=== PATIENT | male | born 1975 | race Hispanic/Latino ===

== ENCOUNTER 2018-10-07 22:59 | Observation (INO) | payer BC, MEDICARE ==
[~2018-10-07] VITALS: Ht 180.3 cm; Wt 134.3 kg
[~2018-10-07 22:59] MED LIST: CALCITRIOL0.25 MCG PO; DOXAZOSIN MESYLA2 MG PO; HYDRALAZINE HCL25 MG PO; LISINOPRIL10 MG PO; MINOXIDIL2.5 MG PO; NIFEDIPINE ER30 M1 PO; NORVASC5 MG PO; SIMVASTATIN20 MG PO; SODIUM BICARBO650 MG PO; TEKTURNA300 MG PO
--- OUTSIDE RECORDS SUMMARY | 2018-10-07 23:02 | XMS REPORT | Clinical Summary ---
Author Author [facility] Organization [facility] Address Unknown Phone Unavailable Care Team Providers Care Portfolio Management Marketing Name Role Phone Lula Mata MD PCP Allergies Comments Active Allergy Reactions Severity Noted Date No Known Drug Allergies 07/21/2015 Medications End Date Status Medication Sig Dispensed Refills Start Date Active doxazosin (CARDURA) 8 MG Take 8 mg by 0 tablet mouth 2 (two) times a day. Active hydrALAZINE (APRESOLINE) Take 100 mg 0 100 MG tablet by mouth 3 (three) times a day. Active amLODIPine (NORVASC) 10 Take 10 mg by 0 MG tablet mouth daily. Active acarbose (PRECOSE) 25 MG Take 25 mg by 0 tablet mouth 3 (three) times a day with meals. Active calcitriol (ROCALTROL) Take 0.5 mcg 0 0.5 MCG capsule by mouth daily. Active furosemide (LASIX) 40 MG Take 40 mg by 0 tablet mouth 2 (two) times a day. Active sevelamer (RENVELA) 800 Take 1,600 mg 0 mg tablet by mouth 3 (three) times a day with meals. Active diphenhydrAMINE Take 25 mg by 0 (BENADRYL) 25 mg tablet mouth nightly as needed for itching, allergies or sleep. Active senna (SENOKOT) 8.6 mg Take 2 0 tablet tablets by mouth as needed for constipation. Active acarbose (PRECOSE) 50 MG TAKE ONE 270 tablet 2 05/11/ tablet TABLET MOUTH 7 3 TIMES A DAY Active Problems Problem Noted Date Hypoglycemia 07/21/2015 Abnormal cortisol level 07/21/2015 Obesity 07/21/2015 Hypertensive disorder 07/21/2015 End stage renal failure on dialysis 07/21/2015 Family History Medical History Relation Name Comments Diabetes Maternal Aunt Diabetes Maternal Grandmother Diabetes Maternal Uncle Diabetes Mother Diabetes Paternal Aunt Diabetes Paternal Grandmother Relation Name Status Comments Maternal Aunt Maternal Grandmother Maternal Uncle Mother Paternal Aunt Paternal Grandmother Social History Date Tobacco Use Types Packs/Day Years Used Never Assessed Drinks/Week oz/Week Comments Alcohol Use No Sex Assigned at Date Recorded Not on file Industry Job Start Date Occupation Not on file Not on file Not on file Travel End Travel History Travel Start No recent travel history available. Last Filed Vital Signs Not on file Plan of Treatment Health Maintenance Due Date Last Done Comments INFLUENZA VACCINE 09/18/2018 Results Not on fileafter 10/06/2017 Insurance Type Payer Benefit Subscriber ID Effective Phone Address Plan / Dates Group PPO BCBS BCBS xxxxxxxxxxxx 2012-P CHOICE resent PPO/HORACIO SANCHEZ PPO Advance Directives For more information, please contact: [phone] Patient Manager Landscape Explanation Type Date Recorded Advance Directives, Living Will and Medical Power of Senior Control Systems Engineer
[2018-10-07 23:40] LABS: BASOPHILS % 0.5 % (0.0-1.0); EOSINOPHILS # (AUTO) 0.1 (0.0-0.4); EOSINOPHILS % 2.5 % (0.0-6.0); HEMATOCRIT 33.5 % (38.2-49.6); HEMOGLOBIN 11.3 g/dL (14.0-18.0); LYMPHOCYTES # (AUTO) 0.6 (1.0-3.2); LYMPHOCYTES % 14.5 % (18.0-39.1); MEAN CORPUSCULAR HEMOGLOBIN 33.5 pg (28-32); MEAN CORPUSCULAR HGB CONC 33.7 g/dL (31-35); MEAN CORPUSCULAR VOLUME 99.4 fL (81-99); MONOCYTES # (AUTO) 0.5 (0.2-0.8); MONOCYTES % 12.3 % (4.4-11.3); NEUTROPHILS # (AUTO) 2.8 (2.1-6.9); NEUTROPHILS % 69.7 % (38.7-80.0); PLATELET COUNT 150 x10e3/uL (140-360); RED BLOOD COUNT 3.37 x10e6/uL (4.3-5.7); RED CELL DISTRIBUTION WIDTH 13.5 % (11.7-14.4)
[2018-10-07 23:53] LABS: ALBUMIN 3.8 g/dL (3.5-5.0); ALBUMIN/GLOBULIN RATIO 1.2 (0.8-2.0); ANION GAP 16.8 mmol/L (8-16); CREATININE, SERUM 4.06 mg/dL (0.72-1.25); POTASSIUM 3.8 mmol/L (3.5-5.1)
[2018-10-08] VITALS (10 sets, daily range): BP systolic 101–144; BP diastolic 52–90
--- OUTSIDE RECORDS SUMMARY | 2018-10-08 00:34 | XMS REPORT | Clinical Summary ---
Author Author [facility] Organization [facility] Address Unknown Phone Unavailable Care Team Providers Care Building Drafter Name Role Phone Lula Mata MD PCP [...] INFLUENZA VACCINE 09/18/2018 Results Not on fileafter 10/07/2017 Insurance Type Payer Benefit Subscriber ID Effective Phone Address Plan / Dates Group PPO BCBS BCBS xxxxxxxxxxxx 2012-P CHOICE resent PPO/HORACIO SANCHEZ PPO [employer] Self 1975 [facility] ([place]) [place] [address] Advance Directives For more information, please contact: [phone] Patient Superintendent Service Explanation Type Date Recorded Advance Directives, Living Will and Medical Power of Manager Advanced
[2018-10-08] MEDS ORDERED: SENSIPAR30 MG PO (01:01)
[2018-10-08] MEDS ORDERED: MONTELUKAST SOD10 MG PO (01:01)
[2018-10-08] MEDS ORDERED: Auryxia PO (01:01)
[2018-10-08] MEDS ORDERED: SENSIPAR90 MG PO (01:01)
[2018-10-08] MEDS ORDERED: LISINOPRIL10 MG PO (01:01)
[2018-10-08] MEDS ORDERED: FUROSEMIDE80 MG PO (01:01)
[2018-10-08] MEDS ORDERED: LEVOCETIRIZINE D5 MG PO (01:01)
--- NOTE | 2018-10-08 01:16 | NUR ---
Received report on patient from ER admitted for bacteremia. The patient arrived on the floor at 0116 with spouse on the stretcher. The patient is A/Ox4, no pain, and not in distress. VS are stable. Call light within reach, bed height low, side rails up x2, and wheels lock. Patient has AV fistula on the right upper arm. Urine cup is placed in the bathroom for collection.
--- NOTE | 2018-10-08 01:34 | Diagnostic Imaging Report ---
EXAMINATION: CHEST SINGLE (PORTABLE) INDICATION: Fever COMPARISON: None FINDINGS: AP view TUBES and LINES: None. LUNGS: Lungs are well inflated. Lungs are clear. There is no evidence of pneumonia or pulmonary edema. PLEURA: No pleural effusion or pneumothorax. HEART AND MEDIASTINUM: The cardiomediastinal silhouette is unremarkable. BONES AND SOFT TISSUES: No acute osseous lesion. Soft tissues are unremarkable. UPPER ABDOMEN: No free air under the diaphragm. IMPRESSION: No acute thoracic abnormality. Signed by: Jason Sullivan DO on 10/08/2018 1:31 AM
[2018-10-08 03:18] LABS: BILIRUBIN,URINE NEGATIVE (NEGATIVE); CLARITY,URINE CLEAR (CLEAR); COLOR,URINE YELLOW (YELLOW); KETONES,URINE NEGATIVE (NEGATIVE); LEUKOCYTE ESTERASE ,URINE NEGATIVE (NEGATIVE); NITRITE,URINE NEGATIVE (NEGATIVE); PROTEIN,URINE DIPSTICK 2+ (NEGATIVE); URINE UROBILINOGEN 0.2 mg/dL (0.2 - 1)
[2018-10-08 03:30] LABS: BACTERIA,URINE MANY /HPF; EPITHELIAL CELLS,URINE FEW /LPF; RBC,URINE 0-5 /HPF (0-5)
[2018-10-08 03:31] LABS: TRANSITIONAL EPI CELLS,URINE MODERATE
[2018-10-08 07:22] LABS: BASOPHILS % 0.5 % (0.0-1.0); EOSINOPHILS # (AUTO) 0.1 (0.0-0.4); EOSINOPHILS % 2.1 % (0.0-6.0); HEMATOCRIT 32.3 % (38.2-49.6); HEMOGLOBIN 10.9 g/dL (14.0-18.0); LYMPHOCYTES # (AUTO) 0.5 (1.0-3.2); LYMPHOCYTES % 14.2 % (18.0-39.1); MEAN CORPUSCULAR HGB CONC 33.7 g/dL (31-35); MEAN CORPUSCULAR VOLUME 100.6 fL (81-99); MONOCYTES # (AUTO) 0.4 (0.2-0.8); MONOCYTES % 11.5 % (4.4-11.3); NEUTROPHILS # (AUTO) 2.7 (2.1-6.9); NEUTROPHILS % 71.2 % (38.7-80.0); PLATELET COUNT 160 x10e3/uL (140-360); RED BLOOD COUNT 3.21 x10e6/uL (4.3-5.7); RED CELL DISTRIBUTION WIDTH 13.3 % (11.7-14.4)
[2018-10-08 07:37] LABS: ALBUMIN 3.3 g/dL (3.5-5.0); ALBUMIN/GLOBULIN RATIO 1.1 (0.8-2.0); ANION GAP 14.2 mmol/L (8-16); CALCIUM 8.3 mg/dL (8.4-10.2); CREATININE, SERUM 5.01 mg/dL (0.72-1.25); POTASSIUM 4.2 mmol/L (3.5-5.1)
[2018-10-08] MEDS ORDERED: ASPIRIN CHEW81 MG PO (07:42)
[2018-10-08] MEDS ORDERED: SODIUM CHLORIDE 0.9% 250ML 250 ML ONE (08:08)
[2018-10-08 08:19] LABS: LYMPHOCYTES % (MANUAL) 16 % (19-48); MONOCYTES % (MANUAL) 7 % (3.4-9.0); NEUTROPHILS % (MANUAL) 77 % (40-74); PLATELET ESTIMATE SLIGHTLY DECREASED; RBC MORPHOLOGY COMMENT NORMAL
--- NOTE | 2018-10-08 08:38 | History and Physical ---
CHIEF COMPLAINT: Fever and chills. HISTORY OF PRESENT ILLNESS: This is a 43-year-old man, who states that 4 days prior to this admission, specifically Thursday, October 04, 2018, he experienced fever and chills while at the hemodialysis unit. The patient states the following day on Friday, October 05, 2018, he had nausea, abdominal pain as well as headache. According to the patient and his , who is present, when he awoke on Saturday, October 06, 2018, he felt much better. The patient states his fever and chills have resolved. The patient denies any chest congestion or cough. He also denies any UTI symptoms. The patient states that even though he is on hemodialysis, he still urinates. However, at the hemodialysis unit, he did have a blood culture drawn on Thursday, October 04, 2018, which revealed gram-positive cocci in clusters on the Gram stain, but the culture results were still pending. The patient thus was dialyzed yesterday at his dialysis unit and sent to the [facility] for further evaluation and treatment. In the emergency room on this admission, the patient was found to have white blood cell count of 4000 with 69% segmenters. His hemoglobin is 11.3 g/dL. The patient's BUN and creatinine are 26 and 4.06 respectively. Lactic acid level is normal at 8.9. Potassium 3.8. Serum bicarb is 30. The patient had a chest x-ray done in the emergency room, which was unremarkable. The patient, however, underwent urinalysis in the emergency room that revealed many bacteria, 3+ glucose, 2+ protein, and 6-10 white blood cells per high-power field. REVIEW OF SYSTEMS: GENERAL: The patient has fever and chills a few days prior to admission, but since resolved. Weight is stable. HEENT: No headaches. No visual changes. CARDIOVASCULAR/RESPIRATORY: No chest pain, short of breath, or cough. GI: The patient had nausea, vomiting 2-3 days prior to admission, but has since resolved. : The patient states he still urinates, but he denies any UTI symptoms. NEUROMUSCULAR: No limb weakness or numbness. PAST MEDICAL HISTORY: 1. End-stage renal disease. 2. Hypertensive heart disease. 3. Chronic diastolic congestive heart failure. 4. Extreme obesity. 5. Anemia secondary to chronic kidney disease. 6. Hyperlipidemia. 7. Prediabetes. PAST SURGICAL HISTORY: 1. Right upper extremity AV fistula placement. 2. Lower extremity venous stripping in 1994. 3. Gastric bypass in 2004. 4. Laparoscopic cholecystectomy in 2008. SOCIAL HISTORY: This man is . He lives with his . 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 The patient drinks alcohol and smokes tobacco socially. ALLERGIES: NO KNOWN DRUG ALLERGIES. FAMILY HISTORY: The patient's mother and uncle have end-stage renal disease. The patient has numerous family members with adult onset diabetes mellitus and hypertension. HOME MEDICATIONS: 1. Aspirin 81 mg daily. 2. Cinacalcet 120 mg daily. 3. Furosemide 80 mg b.i.d. 4. Xyzal 2.5 mg daily. 5. Lisinopril 10 mg every other day. 6. Montelukast 10 mg daily. 7. Auryxia 840 mg before meals three times a day. PHYSICAL EXAMINATION: GENERAL: He is awake, alert, fluent in distress, very pleasant and cooperative. His is at bedside. VITAL SIGNS: Height 5 feet 11 inches, weight is 285 pounds. BMI is 42. INTEGUMENT: No pallor, jaundice, or diaphoresis. HEENT: Anicteric sclerae. Moist mucous membranes. NECK: Supple. CARDIOVASCULAR: Distant heart sounds. Regular rate and rhythm with an S3 and S4 gallop. LUNGS: No rales. No rhonchi. ABDOMEN: Obese, benign. EXTREMITIES: No edema or deformity. The patient has right upper arm fistula in place, but no thrill is palpated. NEUROLOGIC: Intact. No gross focal deficits appreciated. DIAGNOSES: 1. Gram-positive cocci bacteremia, likely. 2. Urinary tract infection. 3. End-stage renal disease. 4. Hypertensive heart disease. 5. Chronic diastolic congestive heart failure. 6. Extreme obesity, body mass index of 42. PLAN: 1. We will follow the blood cultures from the patient's outpatient hemodialysis unit. 2. I discussed the case with the patient's spring clipper namely Dr. Angelique Basilio. 3. We will follow urine and blood cultures here at the hospital. 4. We will consult Nephrology since the patient will require hemodialysis during this hospital stay. 5. We will start empiric intravenous ceftriaxone for the patient's urinary tract infection. 6. We will start empiric intravenous vancomycin for the patient's presumed gram- positive cocci in clusters, bacteremia. 7. Congestive heart failure medical management with lisinopril. I spent 45 minutes in the care of this patient. MD JESSE Morales/FRANCO /[id number]
[2018-10-08 08:43] LABS: CREATINE KINASE MB 0.7 ng/mL (0-5.0)
[2018-10-08] MEDS ORDERED: LEVOCETIRIZINE DIHYDROCHLORIDE 2.5 MG PO SCH (09:00)
[2018-10-08] MEDS ORDERED: CINACALCET HCL 90 MG PO SCH (09:00)
[2018-10-08] MEDS ORDERED: NON-FORMULARY MEDICATION (Furosemide 80 MG) PO SCH (09:00)
[2018-10-08] MEDS ORDERED: LISINOPRIL 10 MG TAB PO SCH (09:00)
[2018-10-08] MEDS: LORATADINE 10 MG TAB PO SCH (09:51)
[2018-10-08] MEDS: FUROSEMIDE 40 MG TAB PO SCH ×2 (09:51→17:16)
[2018-10-08] MEDS: ASPIRIN 81 MG CHEW TAB PO SCH (09:51)
[2018-10-08] MEDS: CEFTRIAXONE SOD 1 GM/NS 50 ML 50 ML IV SCH (09:51)
[2018-10-08] MEDS: CINACALCET 30 MG TAB PO SCH (09:52)
[2018-10-08] MEDS: MONTELUKAST SODIUM 10 MG TAB PO SCH (09:52)
--- NOTE | 2018-10-08 09:54 | NUR ---
Spoke to Iris with [facility] to notify of new HD patient.
--- NOTE | 2018-10-08 11:09 | Consultation ---
DATE OF CONSULTATION: 10/08/2018 Renal Consultation REASON FOR CONSULTATION: End-stage renal disease. HISTORY OF PRESENT ILLNESS: A 43-year-old male with end-stage renal disease, on hemodialysis Saturday, , and Saturday, developed fevers, chills, nausea and vomiting, this past Saturday. The patient had blood cultures drawn on Saturday, dialysis was started on vancomycin. His blood cultures preliminary grew gram-positive cocci. The patient underwent dialysis yesterday and presented to the emergency room. The patient has no further complaints. No fevers at this time or chills. He has a little area of soreness on his AV fistula. REVIEW OF SYSTEMS: A 12-point review of systems completed. All systems negative other than mentioned in the HPI. PAST MEDICAL HISTORY: 1. End-stage renal disease, on hemodialysis Saturday, , and Saturday. 2. Diabetes. 3. Hypertension. 4. Secondary hyperparathyroidism. 5. Anemia, secondary to chronic kidney disease. PAST SURGICAL HISTORY: 1. AV fistula. 2. Lower extremity venous stripping. 3. Gastric bypass. 4. Cholecystectomy. SOCIAL HISTORY: Quit tobacco. Occasional alcohol. No IV drugs. FAMILY HISTORY: Positive for end-stage renal disease. ALLERGIES: NO KNOWN DRUG ALLERGIES. CURRENT MEDICATIONS: See list. PHYSICAL EXAMINATION: VITAL SIGNS: Blood pressure 126/78, pulse 74, respiratory rate 18, and temperature 97.2. GENERAL: In no apparent distress. HEENT: Oropharynx clear. No scleral icterus. No peripheral edema. NECK: Supple. No elevation in Jugular venous pressure. No lymphadenopathy. CHEST: Clear to auscultation anteriorly bilaterally and posteriorly bilaterally. CARDIOVASCULAR: Regular rhythm. No murmurs or rubs. ABDOMEN: Soft. Positive bowel sounds. No tenderness. No rebound. EXTREMITIES: Trace edema. Right upper extremity with an area of redness on his AV fistula on the buttonhole. LABORATORY DATA: White count 3.7, hemoglobin 10.9, hematocrit 32.3, and platelets 160. Sodium 138, potassium 4.2, chloride 97, CO2 of 31, BUN 35, creatinine 5. ASSESSMENT AND PLAN: 1. End-stage renal disease. Continue hemodialysis Saturday, , and Saturday. 2. Bacteremia, unclear etiology. We will do an ultrasound of his right upper extremity. May have abscess related to a buttonhole. We will follow up on cultures at his dialysis center. 3. Hypertension. Resume home medications. 4. Edema. We will ultrafiltrate with dialysis tomorrow. 5. Diabetes, per primary team. MD LINDA Shaw/MODL /[id number]
[2018-10-08] MEDS: AURYXIA PO SCH ×2 (12:00→17:00)
--- NOTE | 2018-10-08 12:03 | Diagnostic Imaging Report ---
Right upper extremity ultrasound. History: Right upper extremity swelling. Discussion: Grayscale sonographic imaging of the right upper extremity was performed. Dilated vein is visualized with a brisk flow, likely related to dialysis access. There is no evidence of focal fluid collection or mass. IMPRESSION: Dilated vein is present. No evidence of abscess. Signed by: Larry Fenton on 10/08/2018 12:00 PM
[2018-10-08 16:16] LABS: CREATINE KINASE 80 IU/L (30-200)
--- NOTE | 2018-10-08 19:10 | NUR ---
Report given to oncoming nurse of patient's status. Resting in bed. No s/s of acute distress noted. Side rails upx2, call light within reach. Family at bedside.
--- NOTE | 2018-10-08 21:00 | NUR ---
PATIENT AOX4 NO DISTRESS NOTED. FAMILY MEMBERS ARE PRESENT AT BEDSIDE AND PATIENT HAS BEEN AMBULATORY. BED IS LOCKED IN LOW POSITION, CALL LIGHT WITHIN REACH, WILL CONTINUE TO MONITOR.
[2018-10-09] VITALS: BP 138/60
[2018-10-09 04:00] VITALS: BP 155/73
[2018-10-09 05:27] LABS: BASOPHILS % 0.2 % (0.0-1.0); EOSINOPHILS # (AUTO) 0.1 (0.0-0.4); EOSINOPHILS % 2.5 % (0.0-6.0); HEMATOCRIT 30.3 % (38.2-49.6); LYMPHOCYTES # (AUTO) 0.7 (1.0-3.2); LYMPHOCYTES % 15.9 % (18.0-39.1); MEAN CORPUSCULAR HEMOGLOBIN 33.3 pg (28-32); MONOCYTES # (AUTO) 0.4 (0.2-0.8); MONOCYTES % 9.3 % (4.4-11.3); NEUTROPHILS # (AUTO) 2.9 (2.1-6.9); NEUTROPHILS % 70.9 % (38.7-80.0); PLATELET COUNT 149 x10e3/uL (140-360); RED CELL DISTRIBUTION WIDTH 13.2 % (11.7-14.4)
[2018-10-09 05:46] LABS: ALBUMIN 3.3 g/dL (3.5-5.0); ALBUMIN/GLOBULIN RATIO 1.3 (0.8-2.0); ANION GAP 14.4 mmol/L (8-16); CALCIUM 8.9 mg/dL (8.4-10.2); CREATININE, SERUM 6.03 mg/dL (0.72-1.25); POTASSIUM 4.4 mmol/L (3.5-5.1)
[2018-10-09 07:35] VITALS: BP 155/73
[2018-10-09 07:53] VITALS: BP 135/63
[2018-10-09] MEDS: AURYXIA PO SCH (08:00)
[2018-10-09] MEDS: CEFTRIAXONE SOD 1 GM/NS 50 ML 50 ML IV SCH (08:16)
--- NOTE | 2018-10-09 08:28 | Discharge Summary ---
ADMIT DIAGNOSES: 1. Gram-positive cocci bacteremia, likely. 2. Urinary tract infection. 3. End-stage renal disease. 4. Hypertensive heart disease. 5. Chronic diastolic congestive heart failure. 6. Extreme obesity, BMI 42. DISCHARGE DIAGNOSES: 1. Urinary tract infection, resolving. 2. End-stage renal disease.. 3. Hypertensive heart disease. 4. Chronic diastolic congestive heart failure. 5. Extreme obesity, BMI 42. HOSPITAL COURSE: This is a 43-year-old man, who was initially admitted to [facility] with a working diagnosis of possible gram-positive cocci in cluster bacteremia. Apparently, blood cultures were performed 4 days prior to admission at his hemodialysis unit. The preliminary gram stain revealed gram-positive cocci in clusters, but the cultures were still pending. The patient was told to come to the emergency room because he was experiencing fever, chills, as well as nausea and headache. During this hospitalization, everything was completely negative. Blood and urine cultures did not reveal any bacterial growth. The patient's white blood cell count remained normal during this hospitalization. In fact, the patient had a lactic acid level drawn during this hospitalization, which was normal at 8.9. The patient had serial cardiac enzymes drawn, which were negative for acute myocardial ischemia or infarction. The patient had chest x-ray done on admission, did not reveal any evidence of pneumonia. The patient also underwent a Doppler ultrasound of the right upper extremity to rule out any abscess near his AV fistula. The results of his Doppler did not reveal any evidence of abscess. The patient underwent echocardiogram during this hospitalization, which revealed a preserved left ventricular ejection fraction of 60% to 65% with a dilated left atrium. The echocardiogram did not reveal any valvular vegetations. However, during this hospitalization, the patient's urinalysis did reveal 6-10 white blood cells per high-power field, many bacteria, and a pH of 8. Thus, the patient was diagnosed with urinary tract infection. The patient improved clinically with intravenous ceftriaxone. He also did receive empiric intravenous vancomycin since the blood culture stain prior to admission did reveal gram-positive cocci in clusters. The patient was seen by his wool shearer during this hospitalization, namely Dr. Lao. The patient's brief hospitalization was unremarkable. CONDITION ON DISCHARGE: Stable. DISCHARGE MEDICATIONS: 1. Cefuroxime 250 mg twice a day for seven days. 2. Aspirin 81 mg daily. 3. Cinacalcet 120 mg daily. 4. Furosemide 80 mg b.i.d. 5. Lisinopril 10 mg every other day. 6. Xyzal 2.5 mg daily. 7. Montelukast 10 mg daily. 8. Auryxia 840 mg three times a day before each meal. FOLLOWUP INSTRUCTIONS: The patient is instructed to follow up with primary care physician, namely myself, Dr. Chet Ochoa within 1 week. The patient will be discharged home today and will proceed to undergo outpatient hemodialysis later on this evening. The patient will continue outpatient hemodialysis Tuesdays, , and Saturdays. MD JESSE Morales/FRANCO /[id number] cc: Ron Lao MD
[2018-10-09] MEDS: ASPIRIN 81 MG CHEW TAB PO SCH (08:51)
[2018-10-09] MEDS: LORATADINE 10 MG TAB PO SCH (08:51)
[2018-10-09] MEDS: CINACALCET 30 MG TAB PO SCH (08:51)
[2018-10-09] MEDS: FUROSEMIDE 40 MG TAB PO SCH (08:51)
[2018-10-09] MEDS: MONTELUKAST SODIUM 10 MG TAB PO SCH (08:51)
[2018-10-09] MEDS ORDERED: CEFUROXIME250 MG PO (08:56)
--- NOTE | 2018-10-09 09:18 | NUR ---
patient discharged home. Dr Ochoa had rounds, prescription given, patient aware about Echo which is done is normal. IV canula removed with tip intact, no ss of infiltration, patient stated he have dialysis this afternoon, denies any pain , no distress noted, transported via wc to front lobby. with him
[2018-10-09] MEDS ORDERED: VANCOMYCIN 1GM/NS 250 ML 250 ML IV SCH (14:00)
== END 2018-10-09 09:50 | disposition home or self-care (01) ==
LOC: ER 22:59 → INTOOBSV 10-08 00:05 → ERHOLD 10-08 00:05 → MED/SURG2 10-08 01:16
PROVIDERS: ADMIT Internal Medicine; ATTEND Internal Medicine
DX: N39.0 Urinary tract infection, site not specified (principal); R10.9 Unspecified abdominal pain; I13.2 Hypertensive heart and chronic kidney disease with heart failure and with stage 5 chronic kidney disease, or end stage renal disease; N18.6 End stage renal disease; I50.32 Chronic diastolic (congestive) heart failure; Z99.2 Dependence on renal dialysis; D63.1 Anemia in chronic kidney disease; E66.01 Morbid (severe) obesity due to excess calories; Z68.41 Body mass index [BMI] 40.0-44.9, adult; T82.7XXA Infection and inflammatory reaction due to other cardiac and vascular devices, implants and grafts, initial encounter; E21.3 Hyperparathyroidism, unspecified
CPT/HCPCS: 36415 ×2; 71045; 76882; 80053 ×3; 81001; 82550; 82553; 83605; 84152; 84484; 85025 ×3; 87040; 87086; 93306; 99284; G0378 ×2; J0696 ×2; J7050

== ENCOUNTER 2022-06-24 14:18 | Emergency (ER) | payer MEDICARE, BC, OTHER ==
[~2022-06-24] VITALS: Ht 177.8 cm; Wt 133.8 kg
[~2022-06-24 14:18] MED LIST changes: +ASPIRIN CHEW81 MG PO; +Auryxia PO; +CEFUROXIME250 MG PO; +FUROSEMIDE80 MG PO; +LEVOCETIRIZINE D5 MG PO; +MONTELUKAST SOD10 MG PO; +SENSIPAR30 MG PO; +SENSIPAR90 MG PO
[2022-06-24] MEDS ORDERED: ULTRAM 50MG50 MG PO (15:20)
[2022-06-24] MEDS ORDERED: TYLENOL325 MG PO (15:20)
[2022-06-24] MEDS ORDERED: ONDANSETRON ODT4 MG PO (15:20)
[2022-06-24] MEDS ORDERED: TRAMADOL HCL 50 MG TAB ONE (15:25)
[2022-06-24] MEDS ORDERED: TRAMADOL HCL 50 MG TAB PO ONE (15:30)
== END 2022-06-24 16:18 | disposition home or self-care (01) ==
LOC: FSED 14:34
DX: S76.811A Strain of other specified muscles, fascia and tendons at thigh level, right thigh, initial encounter (principal); W18.49XA Other slipping, tripping and stumbling without falling, initial encounter; Y93.01 Activity, walking, marching and hiking; Y92.512 Supermarket, store or market as the place of occurrence of the external cause; I12.0 Hypertensive chronic kidney disease with stage 5 chronic kidney disease or end stage renal disease; N18.6 End stage renal disease; Z99.2 Dependence on renal dialysis; D64.9 Anemia, unspecified; G47.30 Sleep apnea, unspecified; Z98.84 Bariatric surgery status
CPT/HCPCS: 99283

== ENCOUNTER 2022-07-03 10:19 | Emergency (ER) | payer MEDICARE, BC ==
[~2022-07-03] VITALS: Ht 177.8 cm; Wt 138.4 kg
[~2022-07-03 10:19] MED LIST changes: +ONDANSETRON ODT4 MG PO; +TYLENOL325 MG PO; +ULTRAM 50MG50 MG PO
[2022-07-03] MEDS ORDERED: BUPROPION XL150 MG PO (10:37)
[2022-07-03] MEDS ORDERED: HYGROTON25 MG PO (10:37)
[2022-07-03] MEDS ORDERED: IBUPROFEN800 MG PO (10:37)
[2022-07-03] MEDS ORDERED: ONDANSETRON HCL 4 MG ORAL DISINTEGRATING TAB PO ONE (10:45)
[2022-07-03] MEDS ORDERED: ONDANSETRON HCL 4 MG ORAL DISINTEGRATING TAB ONE (10:46)
[2022-07-03] MEDS ORDERED: DOXYCYCLINE HY100 MG PO (12:00)
[2022-07-03 12:04] VITALS: O2SAT 98
== END 2022-07-03 12:04 | disposition home or self-care (01) ==
LOC: FSED 10:22
DX: S76.811A Strain of other specified muscles, fascia and tendons at thigh level, right thigh, initial encounter (principal); S70.11XA Contusion of right thigh, initial encounter; M79.651 Pain in right thigh; I12.0 Hypertensive chronic kidney disease with stage 5 chronic kidney disease or end stage renal disease; N18.6 End stage renal disease; Z99.2 Dependence on renal dialysis; D64.9 Anemia, unspecified; G47.30 Sleep apnea, unspecified; F41.9 Anxiety disorder, unspecified; F32.A Depression, unspecified
CPT/HCPCS: 93971; 99283; Q0162

== ENCOUNTER 2023-11-09 21:13 | Inpatient (IN) | payer MEDICARE, BC ==
[~2023-11-09] VITALS: Ht 177.8 cm; Wt 119.7 kg
[~2023-11-09 21:13] MED LIST changes: +BUPROPION XL150 MG PO; +DOXYCYCLINE HY100 MG PO; +HYGROTON25 MG PO; +IBUPROFEN800 MG PO
[2023-11-09] MEDS: FAMOTIDINE 20 MG/2 ML VIAL IV STA (22:35)
[2023-11-09] MEDS: ONDANSETRON HCL INJ 2MG/ML 2ML 2 MG/ML VIAL IV STA (22:36)
[2023-11-09 23:56] VITALS: PULSE 82; RESP 18; TEMP 98.8
[2023-11-10] VITALS (12 sets, daily range): BP systolic 100–145; BP diastolic 52–77; PULSE 70–104; RESP 18–19; TEMP 97.8–103.1; O2SAT 96–100
[2023-11-10] MEDS: ACETAMINOPHEN 325 MG TAB PO ONE (01:11)
[2023-11-10] MEDS: Vancomycin IV 1 GM in SODIUM CHLORIDE 0.9% 250ML 250 ML IV ONE ×2 (01:12→01:13)
[2023-11-10] MEDS ORDERED: [UNRECOGNIZED DRUG - OTHER] (01:51)
[2023-11-10] MEDS ORDERED: AMLODIPINE BESY10 MG PO (01:51)
[2023-11-10] MEDS ORDERED: AURYXIA210 MG PO (01:51)
[2023-11-10] MEDS ORDERED: ASPIRIN81 MG PO (01:51)
[2023-11-10] MEDS ORDERED: FUROSEMIDE40 MG PO (01:51)
[2023-11-10] MEDS: ONDANSETRON HCL INJ 2MG/ML 2ML 2 MG/ML VIAL IV PRN (05:04)
[2023-11-10 07:45] LABS: EOSINOPHILS % 0.2 % (0.0-6.0); HEMATOCRIT 23.9 % (38.2-49.6); HEMOGLOBIN 7.9 g/dL (14.0-18.0); LYMPHOCYTES # (AUTO) 0.1 (1.0-3.2); LYMPHOCYTES % 2.1 % (18.0-39.1); MEAN CORPUSCULAR HEMOGLOBIN 35.1 pg (28-32); MEAN CORPUSCULAR HGB CONC 33.1 g/dL (31-35); MEAN CORPUSCULAR VOLUME 106.2 fL (81-99); MONOCYTES # (AUTO) 0.5 (0.2-0.8); MONOCYTES % 10.2 % (4.4-11.3); NEUTROPHILS # (AUTO) 3.9 (2.1-6.9); NEUTROPHILS % 81.4 % (38.7-80.0); PLATELET COUNT 65 x10e3/uL (140-360); RED BLOOD COUNT 2.25 x10e6/uL (4.3-5.7); WHITE BLOOD COUNT 4.79 x10e3/uL (4.8-10.8)
[2023-11-10 08:28] LABS: ALBUMIN 2.8 g/dL (3.5-5.0); ALBUMIN/GLOBULIN RATIO 0.9 (0.8-2.0); ANION GAP 19.3 mmol/L (8-16); BILIRUBIN,TOTAL 0.9 mg/dL (0.2-1.2); CREATININE, SERUM 7.51 mg/dL (0.72-1.25); TOTAL PROTEIN 5.9 g/dL (6.5-8.1)
[2023-11-10 08:35] LABS: POTASSIUM 3.3 mmol/L (3.5-5.1)
[2023-11-10] MEDS ORDERED: BENZONATATE 100 MG CAP PO PRN (09:00)
[2023-11-10] MEDS ORDERED: ALBUTEROL/IPRATROPIUM 3 ML NEB NEB PRN (09:00)
[2023-11-10] MEDS ORDERED: DEXTROSE 50% SYRINGE 50 ML IV PRN (09:00)
[2023-11-10] MEDS ORDERED: SIMETHICONE 80 MG CHEW PO PRN (09:00)
[2023-11-10] MEDS ORDERED: MELATONIN 5 MG TABLET PO PRN (09:00)
[2023-11-10] MEDS ORDERED: DIPHENHYDRAMINE HCL 25 MG CAP PO PRN (09:00)
[2023-11-10] MEDS ORDERED: HYDRALAZINE HCL 20 MG/ML VIAL IV PRN (09:00)
[2023-11-10] MEDS ORDERED: LIDOCAINE 4% PATCH TP PRN (09:00)
[2023-11-10] MEDS ORDERED: ONDANSETRON HCL INJ 2MG/ML 2ML 2 MG/ML VIAL IV PRN (09:00)
[2023-11-10] MEDS ORDERED: DOCUSATE SODIUM 100 MG CAP PO PRN (09:00)
[2023-11-10 09:34] LABS: BAND NEUTROPHILS % (MANUAL) 1 %; LYMPHOCYTES % (MANUAL) 3 % (19-48); MONOCYTES % (MANUAL) 3 % (3.4-9.0); NEUTROPHILS % (MANUAL) 93 % (40-74); PLATELET ESTIMATE ADEQUATE; PLATELET MORPHOLOGY COMMENT NORMAL; RBC MORPHOLOGY COMMENT NORMAL
[2023-11-10] MEDS: ASPIRIN 81 MG CHEW TAB PO SCH (10:06)
[2023-11-10] MEDS: AMLODIPINE BESYLATE 10 MG TAB PO SCH (10:07)
[2023-11-10] MEDS: BUPROPION HCL 150 MG TABCR PO SCH (10:07)
[2023-11-10] MEDS: ACETAMINOPHEN 325 MG TAB PO PRN (10:07)
[2023-11-10] MEDS: PANTOPRAZOLE SOD 40 MG TABEC PO SCH (10:07)
[2023-11-10] MEDS ORDERED: IOPAMIDOL 370 MG/ML 100 ML INFUS..BTL INJ ONE (18:14)
[2023-11-10 18:15] LABS: CLARITY,URINE CLEAR (CLEAR); COLOR,URINE YELLOW (YELLOW); PH,URINE 7.5 (5 - 7)
[2023-11-10 18:16] LABS: BILIRUBIN,URINE NEGATIVE (NEGATIVE); GLUCOSE, URINE 1+ (NEGATIVE); KETONES,URINE NEGATIVE (NEGATIVE); LEUKOCYTE ESTERASE ,URINE NEGATIVE (NEGATIVE); NITRITE,URINE NEGATIVE (NEGATIVE); PROTEIN,URINE DIPSTICK >=300 (NEGATIVE); URINE UROBILINOGEN 0.2 mg/dL (0.2 - 1)
[2023-11-10 18:17] LABS: EPITHELIAL CELLS,URINE FEW /LPF; RBC,URINE 0-5 /HPF (0-5)
[2023-11-10 18:18] LABS: TRANSITIONAL EPI CELLS,URINE MODERATE
[2023-11-10 18:19] LABS: BACTERIA,URINE FEW /HPF; SPERM,URINE PRESENT
[2023-11-11] VITALS (11 sets, daily range): BP systolic 111–140; BP diastolic 64–83; PULSE 62–79; RESP 18–20; TEMP 97.7–98.4; O2SAT 95–100
[2023-11-11 05:29] LABS: BASOPHILS % 0.2 % (0.0-1.0); EOSINOPHILS # (AUTO) 0.1 (0.0-0.4); EOSINOPHILS % 2.3 % (0.0-6.0); HEMATOCRIT 23.9 % (38.2-49.6); HEMOGLOBIN 7.8 g/dL (14.0-18.0); LYMPHOCYTES # (AUTO) 0.4 (1.0-3.2); LYMPHOCYTES % 8.6 % (18.0-39.1); MEAN CORPUSCULAR HEMOGLOBIN 34.5 pg (28-32); MEAN CORPUSCULAR HGB CONC 32.6 g/dL (31-35); MEAN CORPUSCULAR VOLUME 105.8 fL (81-99); MONOCYTES # (AUTO) 0.6 (0.2-0.8); MONOCYTES % 13.3 % (4.4-11.3); NEUTROPHILS # (AUTO) 3.3 (2.1-6.9); NEUTROPHILS % 74.7 % (38.7-80.0); PLATELET COUNT 76 x10e3/uL (140-360); RED BLOOD COUNT 2.26 x10e6/uL (4.3-5.7); WHITE BLOOD COUNT 4.43 x10e3/uL (4.8-10.8)
[2023-11-11 06:02] LABS: ANION GAP 20.9 mmol/L (8-16); CALCIUM 7.8 mg/dL (8.4-10.2); CREATININE, SERUM 9.25 mg/dL (0.72-1.25); POTASSIUM 3.9 mmol/L (3.5-5.1)
[2023-11-11 06:21] LABS: MAGNESIUM 2.3 MG/DL (1.3-2.1); PHOSPHORUS 6.7 MG/DL (2.3-4.7)
[2023-11-11] MEDS ORDERED: ALBUMIN 25% 12.5GM 0.25 GM/ML BTL IV PRN (08:30)
[2023-11-11] MEDS ORDERED: SODIUM CHLORIDE 0.9% 1000ML 2,000 ML IV PRN (08:30)
[2023-11-11] MEDS: SEVELAMER CARBONATE 800 MG TAB PO SCH (12:00)
[2023-11-12] VITALS (9 sets, daily range): BP systolic 128–138; BP diastolic 72–87; PULSE 69–86; RESP 16–20; TEMP 98.1–98.5; O2SAT 95–100
[2023-11-12 05:17] LABS: HEPATITIS B SURFACE AG (P) Negative (Negative)
[2023-11-12] MEDS ORDERED: CIPROFLOXACIN 250 MG TAB PO SCH (18:00)
[2023-11-13] VITALS (10 sets, daily range): BP systolic 125–158; BP diastolic 61–97; PULSE 65–75; RESP 18–22; TEMP 97.7–98.2; O2SAT 98–100
[2023-11-13] MEDS: CIPROFLOXACIN 250 MG TAB PO SCH (00:46)
[2023-11-13 05:01] LABS: BASOPHILS % 0.3 % (0.0-1.0); EOSINOPHILS # (AUTO) 0.1 (0.0-0.4); HEMATOCRIT 24.4 % (38.2-49.6); LYMPHOCYTES # (AUTO) 0.5 (1.0-3.2); LYMPHOCYTES % 15.1 % (18.0-39.1); MEAN CORPUSCULAR HEMOGLOBIN 34.6 pg (28-32); MEAN CORPUSCULAR HGB CONC 32.4 g/dL (31-35); MONOCYTES # (AUTO) 0.5 (0.2-0.8); MONOCYTES % 13.4 % (4.4-11.3); NEUTROPHILS # (AUTO) 2.4 (2.1-6.9); NEUTROPHILS % 68.3 % (38.7-80.0); RED BLOOD COUNT 2.28 x10e6/uL (4.3-5.7); WHITE BLOOD COUNT 3.52 x10e3/uL (4.8-10.8)
[2023-11-13 05:16] LABS: PLATELET COUNT 86 x10e3/uL (140-360)
[2023-11-13 05:17] LABS: HEMOGLOBIN 7.9 g/dL (14.0-18.0)
[2023-11-13 07:49] LABS: ANION GAP 19.3 mmol/L (8-16); CALCIUM 7.9 mg/dL (8.4-10.2); CREATININE, SERUM 8.48 mg/dL (0.72-1.25); POTASSIUM 4.3 mmol/L (3.5-5.1)
[2023-11-13 10:57] LABS: BASOPHILS % (MANUAL) 1 % (0-1.5); EOSINOPHILS % (MANUAL) 1 % (0-7); LYMPHOCYTES % (MANUAL) 20 % (19-48); MONOCYTES % (MANUAL) 6 % (3.4-9.0); NEUTROPHILS % (MANUAL) 72 % (40-74)
[2023-11-13 10:58] LABS: PLATELET ESTIMATE MODERATELY DECREASED; PLATELET MORPHOLOGY COMMENT NORMAL
[2023-11-13 10:59] LABS: RBC MORPHOLOGY COMMENT ABNORMAL
[2023-11-13] MEDS ORDERED: ALBUMIN 25% 12.5GM 0.25 GM/ML BTL IV PRN ×2 (14:45)
[2023-11-13] MEDS ORDERED: ONDANSETRON HCL 4 MG ORAL DISINTEGRATING TAB PO PRN (18:15)
== END 2023-11-13 20:58 | disposition home or self-care (01) | DRG 871 ==
LOC: FSED 21:18 → ERHOLD 21:57 → IMCU 11-10 00:44
PROVIDERS: ADMIT Internal Medicine; ATTEND Internal Medicine
PROC: 3E0333Z Introduction of Anti-inflammatory into Peripheral Vein, Percutaneous Approach (ICD-10-PCS; principal; 2023-11-09)
PROC: 5A1D70Z Performance of Urinary Filtration, Intermittent, Less than 6 Hours Per Day (ICD-10-PCS; 2023-11-11)
DX: A41.52 Sepsis due to Pseudomonas (principal); N18.6 End stage renal disease; I12.0 Hypertensive chronic kidney disease with stage 5 chronic kidney disease or end stage renal disease; Z16.24 Resistance to multiple antibiotics; E11.22 Type 2 diabetes mellitus with diabetic chronic kidney disease; D69.6 Thrombocytopenia, unspecified; E27.8 Other specified disorders of adrenal gland; E83.39 Other disorders of phosphorus metabolism; D63.1 Anemia in chronic kidney disease; F41.9 Anxiety disorder, unspecified; F32.A Depression, unspecified; G47.30 Sleep apnea, unspecified; E53.8 Deficiency of other specified B group vitamins; E66.01 Morbid (severe) obesity due to excess calories; Z68.37 Body mass index [BMI] 37.0-37.9, adult; Z99.2 Dependence on renal dialysis; Z79.82 Long term (current) use of aspirin; Z98.84 Bariatric surgery status; Z90.49 Acquired absence of other specified parts of digestive tract; Z11.52 Encounter for screening for COVID-19
CPT/HCPCS: 0223U; 36415; 71046; 74177; 76882; 80048; 80053; 81001; 82607; 82948; 83540; 83735; 84100; 84466; 85025; 86706; 87040; 87071; 87086; 87186; 87205; 87340; 87400; 94799; 99252; 99283; 99284; J0692; J2405; J7030; J7050; Q0162; Q9967

== ENCOUNTER 2024-04-18 11:33 | Emergency (ER) | payer MEDICARE, BC ==
[~2024-04-18 11:33] MED LIST changes: +AMLODIPINE BESY10 MG PO; +ASPIRIN81 MG PO; +AURYXIA210 MG PO; +FUROSEMIDE40 MG PO; +[UNRECOGNIZED DRUG - OTHER]
[2024-04-18 14:30] VITALS: PULSE 76; RESP 18; TEMP 98.9; O2SAT 97
[2024-04-18] MEDS ORDERED: AUGMENTIN 500-1 EACH PO (14:37)
== END 2024-04-18 14:44 | disposition home or self-care (01) ==
LOC: FSED 11:38
DX: S00.83XA Contusion of other part of head, initial encounter (principal); S46.811A Strain of other muscles, fascia and tendons at shoulder and upper arm level, right arm, initial encounter; V43.52XA Car driver injured in collision with other type car in traffic accident, initial encounter; Y92.488 Other paved roadways as the place of occurrence of the external cause; I12.0 Hypertensive chronic kidney disease with stage 5 chronic kidney disease or end stage renal disease; N18.6 End stage renal disease; Z99.2 Dependence on renal dialysis; D64.9 Anemia, unspecified; G47.30 Sleep apnea, unspecified; F41.9 Anxiety disorder, unspecified; F32.A Depression, unspecified; Z98.84 Bariatric surgery status
CPT/HCPCS: 70450; 70486; 72125; 99284

== ENCOUNTER → 2024-12-02 | Day surgery (SDC) | payer MEDICARE, BC ==
[2024-11-26 16:03] LABS: BASOPHILS % 0.7 % (0.0-1.0); EOSINOPHILS % 2.1 % (0.0-6.0); LYMPHOCYTES % 16.4 % (18.0-39.1); MONOCYTES % 13.7 % (4.4-11.3); NEUTROPHILS % 66.8 % (38.7-80.0); RED CELL DISTRIBUTION WIDTH 13.6 % (11.7-14.4)
[2024-11-26 16:18] LABS: INR 1.03
[2024-11-26 16:25] LABS: EST GLOMERULAR FILTRATION RATE 10.0 ML/MIN (>=60)
[~2024-12-02] MED LIST changes: +AMLODIPINE-OLM1 EAC3 PO; +AUGMENTIN 500-1 EACH PO; +CHLORTHALIDONE50 MG PO; +COREG12.5 MG PO; +LIDOCAINE HCL 2% LOCAL INJ 5 ML SDV VIAL INJ ONE; +PROPOFOL IV EMULSION 50 ML IV ONE; +QSYMIA 15 MG-91 EACH PO; +RENVELA0.8 GM PO; +SILDENAFIL CIT100 MG PO; +SODIUM CHLORIDE 0.9% 500ML 500 ML ONE
[2024-12-02 10:27] VITALS: TEMP 98.5
[2024-12-02 11:00] VITALS: BP 118/72; PULSE 66; RESP 18; O2SAT 98
== END | disposition home or self-care (01) ==
LOC: OR 07:08
PROVIDERS: ATTEND Internal Medicine Gastroenterology
DX: Z12.11 Encounter for screening for malignant neoplasm of colon (principal); D17.5 Benign lipomatous neoplasm of intra-abdominal organs; K64.1 Second degree hemorrhoids; D64.9 Anemia, unspecified; G47.33 Obstructive sleep apnea (adult) (pediatric); I12.0 Hypertensive chronic kidney disease with stage 5 chronic kidney disease or end stage renal disease; N18.6 End stage renal disease; E78.5 Hyperlipidemia, unspecified; I83.90 Asymptomatic varicose veins of unspecified lower extremity; F32.A Depression, unspecified; Z91.041 Radiographic dye allergy status; Z91.013 Allergy to seafood; Z01.810 Encounter for preprocedural cardiovascular examination; Z01.812 Encounter for preprocedural laboratory examination; Z99.2 Dependence on renal dialysis; Z79.82 Long term (current) use of aspirin; Z79.899 Other long term (current) drug therapy; Z68.35 Body mass index [BMI] 35.0-35.9, adult; Z87.891 Personal history of nicotine dependence
CPT/HCPCS: 36415 ×2; 45380; 80048; 82948; 84132; 85025; 85610; 85730; 93005; J2003; J2704; J7040